=== PATIENT | female | born 1945 | race Caucasian/White ===

== ENCOUNTER → 2018-01-19 | Outpatient (CLI) | payer MEDICARE, BC ==
[~2018-01-19] MED LIST: ASPI81CH PO; ATOR40TA PO; Amlodipine Bes2.5 MG PO; Hair, Skin & N1 EACH PO; LETR2.5 PO; OMEG1CAP30 PO; SIMV5 PO
== END ==
LOC: LAB SHORT 10:40 → LAB EV 10:40
DX: L03.90 Cellulitis, unspecified (principal)
CPT/HCPCS: 87070; 87075; 87205